=== PATIENT | female | born 1995 | race Caucasian/White ===

== ENCOUNTER 2025-08-29 18:21 | Emergency (ER) | payer OTHER ==
[~2025-08-29] VITALS: Ht 172.7 cm; Wt 95.5 kg
[2025-08-29 18:44] VITALS: BP 112/62; PULSE 70; RESP 19; TEMP 98.1; O2SAT 99
[2025-08-29] MEDS: LIDOCAINE 5% TRANSDERMAL PATCH TD ONE (23:51)
[2025-08-29] MEDS: KETOROLAC TROMETHAMINE 30 MG/ML VIAL IM ONE (23:51)
== END 2025-08-30 00:26 | disposition home or self-care (01) ==
LOC: EMS 18:21
DX: M25.511 Pain in right shoulder (principal); X58.XXXA Exposure to other specified factors, initial encounter; Y92.322 Soccer field as the place of occurrence of the external cause; Y93.66 Activity, soccer; Y99.8 Other external cause status
CPT/HCPCS: 99283; 73030; 96372; J1885